=== PATIENT | male | born 1965 | race Caucasian/White ===

== ENCOUNTER 2021-06-27 11:13 | Emergency (ER) | payer MEDICAID, SELFPAY ==
[2021-06-27] VITALS (79 sets, daily range): BP systolic 118–165; BP diastolic 66–103; PULSE 49–86; RESP 10–32; TEMP 36.4–36.6; O2SAT 94–98
--- NOTE | 2021-06-27 11:15 | RT.EKG_ITS ---
APPROVED REPORT Exam: Resting ECG Reason for Exam: L chest/shoulder pain Patient Location: E HR:78 bpm ECG Measurements Heart Rate 78 AXIS SC 174 P 43 QRSd 152 QRS -52 QT 438 T 107 QTc 500 Conclusion Sinus rhythm...normal P axis, V-rate 60- 99 Left bundle branch block...QRSd>120, broad/notched R ST elevation secondary to IVCD...Multiple VCG criteria normal sinus rhythm, left axis, LBBB
--- NOTE | 2021-06-27 11:15 | DI.RAD_ITS ---
Exam(s) XR CHEST 2V PA LATERAL EXAM: XR CHEST 2V PA LATERAL CLINICAL HISTORY: L sided chest pain. TECHNIQUE: 2D digital imaging was performed. COMPARISON: No exams were available for comparison FINDINGS: Heart size is normal. The mediastinum is not widened. Lungs are clear. No infiltrates nor pleural effusions. IMPRESSION: No acute pulmonary findings. DATA REPOSITORY: RADIATION DOSE DELIVERED:
[2021-06-27 11:48] LABS: Abs Immature Grans 0.06 10^3/uL (0.0-0.06); Absolute Basophil Count 0.05 10^3/uL (0.0-0.2); Absolute Eosinophil Count 0.16 10^3/uL (0.0-0.7); Absolute Lymphocyte Count 3.02 10^3/uL (1.2-3.4); Absolute Monocyte Count 0.71 10^3/uL (0.1-0.8); Absolute Neutrophil Count 6.39 10^3/uL (1.2-6.7); Basophils % 0.5; Eosinophils % 1.5; HCT 46.1 % (40.0-50.0); HGB 15.3 g/dL (13.5-17.5); Immature Grans % 0.6; Lymphocytes % 29.1; MCH 30.7 pg (27.0-33.0); MCHC 33.2 % (32.0-36.0); MCV 92.6 fL (80-95); MPV 9.8 fL (8.0-11.0); Monocytes % 6.8; Neutrophils % 61.5; Nucleated RBC 0 %; Platelet Count 288 10^3/uL (130-400); RBC 4.98 10^6/uL (4.36-5.78); RDW 13.2 % (11.8-14.1); RDW-SD 44.8 fL; WBC 10.39 10^3/uL (4.4-10.8)
[2021-06-27 11:59] LABS: ALT 48 U/L (16-63); AST 29 U/L (15-37); Albumin 3.9 g/dL (3.4-5.0); Alkaline Phosphatase 91 U/L (46-116); Anion Gap 7.9 mmol/L (3-11); BUN 15 mg/dL (7-18); Bilirubin, Total 0.5 mg/dL (0.2-1.0); CO2 26.1 mmol/L (21.0-32.0); CREATININE 0.9 mg/dL (0.70-1.30); Calcium 8.8 mg/dL (8.5-10.1); Chloride 105 mmol/L (98-107); Glucose 103 mg/dL (74-106); Magnesium 1.8 mg/dL (1.8-2.4); Potassium 3.8 mmol/L (3.5-5.1); Sodium 139 mmol/L (136-145); Total Protein 7.4 g/dL (6.4-8.2)
[2021-06-27 12:06] LABS: Troponin I 120 ng/L (<or=60)
[2021-06-27] MEDS: Aspirin 325 MG TAB PO (12:30)
[2021-06-27 12:34] LABS: D-Dimer 306 ng/mlFEU (<500)
--- NOTE | 2021-06-27 12:37 | W.ED.GENAD ---
Discharge Plan Disposition Patient Disposition: STILL A PATIENT Condition: Serious Discharge Details Clinical Impression: Non-ST elevation UT (NSTEMI) Primary Care Provider: Unknown,Unknown ED Provider: Ami Bartlett Discharge Data Discharge Date/Time-TO BE ENTERED AT DEPARTURE: 06/27/21 18:05 Medical Decision Making <ABHINAV Ron - Last Filed: 06/28/21 08:06> This is a 55-year-old gentleman, denies significant past medical history but has not had any medical care in approximately 30 years. He does state that he is vaccinated x2 for Covid. He smokes a half a pack of cigarettes daily. He is presenting today complaining of left-sided chest pain that has been present more often than not over the past month, occasionally radiates to his shoulder and arm, sometimes down his entire arm to his hand. He states nothing really makes it worse or better and initially thought that he probably pulled a muscle. Given the symptoms have persisted, he is concerned that this is not a pulled muscle and there may be something more serious going on. Clinically he appears well, nontoxic, hemodynamically stable. Given his complaints, will obtain cardiac work-up including D-dimer and give a single dose of aspirin EKG reveals a left bundle branch block, unknown if this is acute as there are no previous to compare to. I was called with a critical troponin of 120. In the setting of left-sided chest pain, left bundle branch block of unknown duration, and an elevated troponin, patient likely with NSTEMI. EKG was transmitted to [facility] and I requested a cardiology transfer While awaiting the call back from cardiology CBC and CMP were unremarkable. Awaiting D-dimer I received a call from ABHINAV Kahn, cardiology at [facility]. She recommends initiating nitro, a low-dose beta-elsi, heparin bolus and drip, Plavix loading dose of 300, and atorvastatin. She agrees the patient needs to be transferred and Dr. Henson will be the accepting physician. Patient given the medications that were requested by cardiology. After a single sublingual nitro, patient is pain-free. All appropriate transfer paperwork was completed Patient reassessed again at 1400, remains asymptomatic and hemodynamically stable. Awaiting [facility] to call back with a bed assignment for transfer. 1525, patient remains asymptomatic and hemodynamically stable, awaiting transfer Medical Records Medical records reviewed: Yes I reviewed the patient's medical records. Imaging Data Radiologic Study: Attestation: I personally reviewed and interpreted this imaging study as follows: Imaging: X-Ray Radiologist's impression: Exam(s) XR CHEST 2V PA LATERAL EXAM: XR CHEST 2V PA LATERAL CLINICAL HISTORY: L sided chest pain. TECHNIQUE: 2D digital imaging was performed. COMPARISON: No exams were available for comparison FINDINGS: Heart size is normal. The mediastinum is not widened. Lungs are clear. No infiltrates nor pleural effusions. IMPRESSION: No acute pulmonary findings. Lab Data Lab results reviewed: Yes I reviewed the patient's lab results. Labs: Laboratory Tests Range/Units 06/27/21 06/27/21 06/27/21 11:36 11:36 11:36 WBC (4.4-10.8) 10^3/uL 10.39 RBC (4.36-5.78) 10^6/uL 4.98 Hgb (13.5-17.5) g/dL 15.3 Hct (40.0-50.0) % 46.1 MCV (80-95) fL 92.6 MCH (27.0-33.0) pg 30.7 MCHC (32.0-36.0) % 33.2 RDW (11.8-14.1) % 13.2 Plt Count (130-400) 10^3/uL 288 MPV (8.0-11.0) fL 9.8 Immature Gran % 0.6 Neutrophils % 61.5 Lymphocytes % 29.1 Monocytes % 6.8 Eosinophils % 1.5 Basophils % 0.5 Nucleated RBC % % 0 Absolute Neutrophils (1.2-6.7) 10^3/uL 6.39 Absolute Lymphocytes (1.2-3.4) 10^3/uL 3.02 Absolute Monocytes (0.1-0.8) 10^3/uL 0.71 Absolute Eosinophils (0.0-0.7) 10^3/uL 0.16 Absolute Basophils (0.0-0.2) 10^3/uL 0.05 PT (9.3-11.0) sec INR (0.9-1.1) APTT (21.0-27.5) sec D-Dimer (<500) ng/mlFEU 306 Sodium (136-145) mmol/L 139 Potassium (3.5-5.1) mmol/L 3.8 Chloride (98-107) mmol/L 105 Carbon Dioxide (21.0-32.0) mmol/L 26.1 Anion Gap (3-11) mmol/L 7.9 BUN (7-18) mg/dL 15 Creatinine (0.70-1.30) mg/dL 0.9 Estimated GFR/1.73 m2 (mL/min/1.73m2) >= 60.00 Glucose (74-106) mg/dL 103 Calcium (8.5-10.1) mg/dL 8.8 Magnesium (1.8-2.4) mg/dL 1.8 Total Bilirubin (0.2-1.0) mg/dL 0.5 AST (15-37) U/L 29 ALT (16-63) U/L 48 Alkaline Phosphatase (46-116) U/L 91 Troponin I (<or=60) ng/L 120 H* Total Protein (6.4-8.2) g/dL 7.4 Albumin (3.4-5.0) g/dL 3.9 COVID-19 Source Range/Units 06/27/21 06/27/21 12:45 12:58 WBC (4.4-10.8) 10^3/uL RBC (4.36-5.78) 10^6/uL Hgb (13.5-17.5) g/dL Hct (40.0-50.0) % MCV (80-95) fL MCH (27.0-33.0) pg MCHC (32.0-36.0) % RDW (11.8-14.1) % Plt Count (130-400) 10^3/uL MPV (8.0-11.0) fL Immature Gran % Neutrophils % Lymphocytes % Monocytes % Eosinophils % Basophils % Nucleated RBC % % Absolute Neutrophils (1.2-6.7) 10^3/uL Absolute Lymphocytes (1.2-3.4) 10^3/uL Absolute Monocytes (0.1-0.8) 10^3/uL Absolute Eosinophils (0.0-0.7) 10^3/uL Absolute Basophils (0.0-0.2) 10^3/uL PT (9.3-11.0) sec 9.9 INR (0.9-1.1) 1.0 APTT (21.0-27.5) sec 24.0 D-Dimer (<500) ng/mlFEU Sodium (136-145) mmol/L Potassium (3.5-5.1) mmol/L Chloride (98-107) mmol/L Carbon Dioxide (21.0-32.0) mmol/L Anion Gap (3-11) mmol/L BUN (7-18) mg/dL Creatinine (0.70-1.30) mg/dL Estimated GFR/1.73 m2 (mL/min/1.73m2) Glucose (74-106) mg/dL Calcium (8.5-10.1) mg/dL Magnesium (1.8-2.4) mg/dL Total Bilirubin (0.2-1.0) mg/dL AST (15-37) U/L ALT (16-63) U/L Alkaline Phosphatase (46-116) U/L Troponin I (<or=60) ng/L Total Protein (6.4-8.2) g/dL Albumin (3.4-5.0) g/dL COVID-19 Source Nasal/Nares ECG Data Attestation: I personally reviewed and interpreted this ECG (s) as follows: Interpretation: Please see official report by Dr. Rai. Sinus rhythm, ventricular rate of 78, left bundle branch block. No priors for comparison <ABHINAV Powell - Last Filed: 06/27/21 23:57> This is a 55-year-old gentleman, denies significant past medical history but has not had any medical care in approximately 30 years. He does state that he is vaccinated x2 for Covid. He smokes a half a pack of cigarettes daily. He is presenting today complaining of left-sided chest pain that has been present more often than not over the past month, occasionally radiates to his shoulder and arm, sometimes down his entire arm to his hand. He states nothing really makes it worse or better and initially thought that he probably pulled a muscle. Given the symptoms have persisted, he is concerned that this is not a pulled muscle and there may be something more serious going on. Clinically he appears well, nontoxic, hemodynamically stable. Given his complaints, will obtain cardiac work-up including D-dimer and give a single dose of aspirin EKG reveals a left bundle branch block, unknown if this is acute as there are no previous to compare to. I was called with a critical troponin of 120. In the setting of left-sided chest pain, left bundle branch block of unknown duration, and an elevated troponin, patient likely with NSTEMI. EKG was transmitted to [facility] and I requested a cardiology transfer While awaiting the call back from cardiology CBC and CMP were unremarkable. Awaiting D-dimer I received a call from ABHINAV Kahn cardiology at [facility]. She recommends initiating nitro, a low-dose beta-elsi, heparin bolus and drip, Plavix loading dose of 300, and atorvastatin. She agrees the patient needs to be transferred and Dr. Henson will be the accepting physician. Patient given the medications that were requested by cardiology. After a single sublingual nitro, patient is pain-free. All appropriate transfer paperwork was completed Patient reassessed again at 1400, remains asymptomatic and hemodynamically stable. Awaiting [facility] to call back with a bed assignment for transfer. 1525, patient remains asymptomatic and hemodynamically stable, awaiting transfer Current changes to myself from Albaro Heath PA-C. Please see his initial note regarding history, presentation and exam. In brief, patient is a 55-year-old gentleman presenting today with chief complaint of chest pain. Patient diagnosed with an NSTEMI and accepted at [facility], transfer pending. Patient remained hemodynamically stable, bed available at [facility] and patient transferred via EMS to their facility for further care of his cardiac condition. HPI <ABHINAV Ron - Last Filed: 06/28/21 08:06> General Mode of arrival: ambulatory. Date/Time Provider Initiated Documentation: 06/27/21 11:16. Limitations to Documentation: no limitations. Information obtained by: patient. History of Present Illness 55 year old M presents to the emergency department with the chief complaint of L sided chest pain, described as mild, with intensity rated at 3. Quality is described as aching, and is localized to the chest and left. Patient extremity (L upper). Patient started experiencing this month(s) (1) and it has been constant. improves with No relieving factors improve symptom(s), Movement worsens symptoms (at times) . Patient notes no other symptoms.. Patient did receive the following treatments prior to arrival, none Related Data Allergies Allergy/AdvReac Type Severity Reaction Status Date / Time No Known Allergies Allergy Unverified 06/27/21 11:30 General Stated Complaint: Chest Pain DORA: 2 Review of Systems <ABHINAV Ron - Last Filed: 06/28/21 08:06> Constitutional Constitutional: Denies fatigue, Denies fever(s), Denies headache(s) and Denies weakness ENT Ears, Nose, Mouth, and Throat: Denies headache(s) Cardiovascular Cardiovascular: Reports chest pain and Denies dyspnea Respiratory Respiratory: Denies cough and Denies dyspnea Gastrointestinal Gastrointestinal: Denies abdominal pain, Denies nausea and Denies vomiting Musculoskeletal Musculoskeletal: Denies back pain, Denies numbness and Denies tingling Integumentary/Breasts Skin/Breast: Denies rash Neurologic Neurologic: Denies headache(s), Denies numbness, Denies tingling and Denies weakness Endocrine Endocrine: Denies fatigue Hematologic/Lymphatic Hematologic/Lymphatic: Denies easy bleeding and Denies easy bruising PFSH <ABHINAV Ron - Last Filed: 06/28/21 08:06> All Active Problems (Updated 06/27/21 @ 14:04 by ABHINAV Ron) Non-ST elevation UT (NSTEMI) (Acute) Social History Smoking/Tobacco Use Status: Current every day Tobacco Type: cigarettes Smoking risk assessment performed?: Yes Alcohol Intake: never Drug use: Never Substance use type: does not use Do you feel safe at home: Yes Do you feel safe in your relationship?: Yes Exam <ABHINAV Ron - Last Filed: 06/28/21 08:06> Const General: cooperative, healthy appearing, comfortable and no acute distress Orientation: alert, awake and oriented x3 HENMT Head: normal to inspection, normocephalic and atraumatic Face and sinus: normal facial exam Mouth: moist mucous membranes Eyes General: appearance normal, both eyes and all related structures Conjunctivae: conjunctivae normal Neck Neck: normal visual inspection, trachea midline, supple and nontender Chest Chest: normal inspection of the chest and normal palpation of entire chest wall Resp Effort & Inspection: normal respiratory effort and able to speak in complete sentences Auscultation: clear to auscultation bilaterally Cardio Rate: regular rate Rhythm: regular rhythm GI Palpation: soft and nontender Back/Spine/Pelvis Back: No back tenderness Skin General skin exam: no rashes or lesions noted Neuro General: patient alert, patient awake, patient oriented x3, moves all extremities and no focal motor deficits Cognition: normal cognition Speech: speech normal Gait: normal gait Motor: muscle tone normal throughout Sensory Exam: no sensory deficits noted Extrem General: normal to inspection, full ROM, capillary refill normal, no pedal edema and no calf tenderness Psych Appearance: grossly normal Mental Status: mental status grossly normal Course <ABHINAV Ron - Last Filed: 06/28/21 08:06> Vital Signs Vital signs: Vital Signs Temperature 36.6 C 06/27/21 11:19 Pulse 81 06/27/21 11:19 Respiratory Rate 20 06/27/21 11:19 Blood Pressure 165/89 H 06/27/21 11:19 Pulse Oximetry 98 06/27/21 11:19 Temperature 36.6 C 06/27/21 11:19 Pulse 66 06/27/21 12:01 Pulse 75 06/27/21 12:01 Respiratory Rate 18 06/27/21 12:01 Respiratory Effort Non-Labored 06/27/21 11:22 Respiratory Depth Normal 06/27/21 11:22 Respiratory Pattern Normal 06/27/21 11:22 Blood Pressure 130/90 06/27/21 12:01 Blood Pressure Mean 100 06/27/21 12:01 Blood Pressure Position Sitting 06/27/21 11:19 Pulse Oximetry 96 06/27/21 12:01 Oxygen Delivery Method Room Air 06/27/21 11:19 Oxygen Flow Rate 0 06/27/21 11:19 Pain Level 0 06/27/21 11:22 Lab/Test Results Lab/Test Results: Laboratory Tests Range/Units 06/27/21 06/27/21 06/27/21 11:36 11:36 11:36 WBC (4.4-10.8) 10^3/uL 10.39 RBC (4.36-5.78) 10^6/uL 4.98 Hgb (13.5-17.5) g/dL 15.3 Hct (40.0-50.0) % 46.1 MCV (80-95) fL 92.6 MCH (27.0-33.0) pg 30.7 MCHC (32.0-36.0) % 33.2 RDW (11.8-14.1) % 13.2 Plt Count (130-400) 10^3/uL 288 MPV (8.0-11.0) fL 9.8 Immature Gran % 0.6 Neutrophils % 61.5 Lymphocytes % 29.1 Monocytes % 6.8 Eosinophils % 1.5 Basophils % 0.5 Nucleated RBC % % 0 Absolute Neutrophils (1.2-6.7) 10^3/uL 6.39 Absolute Lymphocytes (1.2-3.4) 10^3/uL 3.02 Absolute Monocytes (0.1-0.8) 10^3/uL 0.71 Absolute Eosinophils (0.0-0.7) 10^3/uL 0.16 Absolute Basophils (0.0-0.2) 10^3/uL 0.05 D-Dimer (<500) ng/mlFEU 306 Sodium (136-145) mmol/L 139 Potassium (3.5-5.1) mmol/L 3.8 Chloride (98-107) mmol/L 105 Carbon Dioxide (21.0-32.0) mmol/L 26.1 Anion Gap (3-11) mmol/L 7.9 BUN (7-18) mg/dL 15 Creatinine (0.70-1.30) mg/dL 0.9 Estimated GFR/1.73 m2 (mL/min/1.73m2) >= 60.00 Glucose (74-106) mg/dL 103 Calcium (8.5-10.1) mg/dL 8.8 Magnesium (1.8-2.4) mg/dL 1.8 Total Bilirubin (0.2-1.0) mg/dL 0.5 AST (15-37) U/L 29 ALT (16-63) U/L 48 Alkaline Phosphatase (46-116) U/L 91 Troponin I (<or=60) ng/L 120 H* Total Protein (6.4-8.2) g/dL 7.4 Albumin (3.4-5.0) g/dL 3.9 Critical Care Time <ABHINAV Ron - Last Filed: 06/28/21 08:06> Critical Care Time Critical Care Time: Yes Total Critical Care Time: 35 Attestation: Upon my evaluation, this patient had a high probability of clinically significant, life-threatening deterioration due to their current medical conditions, which required my direct attention, intervention, and personal management. I have personally provided greater than 30 minutes of critical care time exclusive of the time spend on separately billable procedures. Time includes obtaining a history, examining the patient, pulse oximetry, review of laboratory data, radiology results, discussion with consultants, arranging urgent treatment with development of a management plan, evaluation of patient's response to treatment, and monitoring for potential decompensation. Interventions were performed as documented above. Sign Out <ABHINAV Ron - Last Filed: 06/28/21 08:06> Sign Out Data: Sign Out Comment: NSTEMI, awaiting [facility] to jay hospital bed assignment Last updated by Santo Heath PA at 06/27/21 15:25
[2021-06-27] MEDS: Clopidogrel 300 MG TAB PO (12:47)
[2021-06-27] MEDS: Metoprolol 12.5 MG TAB PO (12:56)
[2021-06-27] MEDS: Atorvastatin 40 MG TAB 80 MG PO (12:57)
[2021-06-27 13:06] LABS: Prothrombin Time 9.9 sec (9.3-11.0)
[2021-06-27 13:12] LABS: Source Nasal/Nares
[2021-06-27 14:18] LABS: COVID-19 PCR Negative (Negative)
== END 2021-06-27 18:05 | disposition still patient (30) ==
PROVIDERS: Physician Assistant; Emergency Provider Physician Assistant
DX: I21.4 Non-ST elevation (NSTEMI) myocardial infarction (principal); F17.210 Nicotine dependence, cigarettes, uncomplicated; I44.7 Left bundle-branch block, unspecified
CPT/HCPCS: 36415; 80053; 87635; 93005; 96365; 96376; 99291; 71046; 83735; 84484; 85025; 85379; 85610; 85730; 93010; J3490

== ENCOUNTER 2021-07-08 03:43 | Outpatient (CLI) | payer MEDICAID, SELFPAY ==
[2021-07-08 08:16] LABS: Hemoglobin A1C 5.5 % (<5.7)
[2021-07-08 09:22] LABS: ALT 61 U/L (16-63); AST 25 U/L (15-37); Albumin 4.2 g/dL (3.4-5.0); Alkaline Phosphatase 99 U/L (46-116); Anion Gap 9.1 mmol/L (3-11); BUN 15 mg/dL (7-18); Bilirubin, Total 0.7 mg/dL (0.2-1.0); CO2 26.9 mmol/L (21.0-32.0); Calcium 9.2 mg/dL (8.5-10.1); Calculated LDL 63 mg/dL (<100); Chloride 103 mmol/L (98-107); Cholesterol 119 mg/dL (<200); Glucose 98 mg/dL (74-106); HDL Cholesterol 49 mg/dL (40-60); Potassium 4.6 mmol/L (3.5-5.1); Sodium 139 mmol/L (136-145); TSH 1.09 uIU/mL (0.36-3.74); Total Protein 7.3 g/dL (6.4-8.2); Triglyceride 39 mg/dL (<150)
[2021-07-08 18:43] LABS: PSA, Screening 1.5 ng/mL (0.0-3.5)
== END 2021-07-08 03:44 | disposition home or self-care (01) ==
LOC: LBO 03:43
PROVIDERS: PCP Nurse Practitioner Family; Visit Provider Nurse Practitioner Family
DX: Z12.5 Encounter for screening for malignant neoplasm of prostate (principal); I10 Essential (primary) hypertension; Z13.220 Encounter for screening for lipoid disorders; Z13.1 Encounter for screening for diabetes mellitus; Z13.29 Encounter for screening for other suspected endocrine disorder
CPT/HCPCS: 36415; 80053; 80061; 84153; 83036; 84443

== ENCOUNTER 2021-08-03 08:00 | Outpatient (RCR) | payer MEDICAID, SELFPAY | END 2021-08-04 23:59 | disposition home or self-care (01) | LOC: CR 08:00 | PROVIDERS: PCP Nurse Practitioner Family; Visit Provider Family Medicine | DX: Z51.89 Encounter for other specified aftercare (principal); I25.2 Old myocardial infarction; I42.9 Cardiomyopathy, unspecified | CPT/HCPCS: S9472 ==

== ENCOUNTER 2021-08-12 00:19 | Outpatient (CLI) | payer MEDICAID, SELFPAY ==
--- NOTE | 2021-08-12 07:38 | DI.US_ITS ---
APPROVED REPORT EXAM: Comprehensive 2D, Doppler, and color-flow Echocardiogram Patient Location: Out-Patient Manager Product Design: Zaria Cox RDCS (AE) Indications: Cardiomyopathy Other Information Study Quality: Adequate Conclusion Normal left ventricular wall thickness and chamber size. Estimated ejection fraction is 40 to 45%. Septal motion is consistent with known IVCD (LBBB). The remainder of the ventricle is mildly hypocon tractile Normal right ventricular size and systolic function Both atria are normal in size There is no structural or hemodynamically significant valvular disease Borderline dilated ascending aorta measuring 3.53 cm Wall motion Left Ventricle The left ventricle is normal size. Left ventricular systolic function is mildly decreased. There is n ormal left ventricular wall thickness. Septal motion consistent with IVCD Remainder mildly hypocontra ctile There is no ventricular septal defect visualized. LVEF is 40-45%. Right Ventricle The right ventricle is normal size. The right ventricular systolic function is normal. Atria The left atrium size is normal. The right atrium size is normal. The interatrial septum is intact wit h no evidence for an atrial septal defect. Aortic Valve The aortic valve is normal in structure. There is no aortic valvular stenosis. No aortic regurgitatio n is present. Mitral Valve The mitral valve is normal in structure. No evidence of mitral valve stenosis. Trace mitral regurgita tion. Tricuspid Valve The tricuspid valve is normal in structure. There is no tricuspid valve stenosis. Trace tricuspid reg urgitation. Unable to assess PA pressure. Pulmonic Valve The pulmonary valve is normal in structure. There is no pulmonic valvular stenosis. Trace to mild pul tunde regurgitation. Great Vessels The aortic root is normal in size. The ascending aorta is mildly dilated. Aortic arch is normal in ca liber. IVC is normal in size and collapses >50% with inspiration. Pericardium There is no pericardial effusion. 2D Dimensions IVSD d PLAX 1.05 cm M: 0.6-1.2 LV Vol A2C d MOD 119.0 mL LVPW d PLAX 1.00 cm M: 0.6 - 1.2 LV Vol A4C d MOD 110.4 mL LVID d PLAX 5.47 cm M: 4.2 - 5.8 LA vol/ BSA A2C s A-L 24.5 mL/m2 LVDs 4.40 cm M: 2.5 - 4.0 LA vol/ BSA A4C s A-L 18.3 mL/m2 Ao Root d 3.29 cm M: 3.1 - 3.7 LA Vol/ BSA Biplane s A-L 21.2 mL/m2 RA Area A4C 13.73 cm2 LA Area A4C s MOD 14.97 cm2 RA Vol/ BSA A4C s A-L 17.9 mL/m2 LA Area A2C s MOD 17.30 cm2 Ao Asc Diam d 3.53 cm M: 2.6 - 3.4 LV EF A4C MOD 35.4 % LV EF Teichholz 38.6 % LV EF A2C MOD 40.8 % LVEF (Espitia's) 38.20 % M: 52 - 72 LV EF Biplane MOD 38.2 % LV Volume 88.05 mL M: 62 - 150 SV 44.67 mL LV Volume Index 44.69 mL/m2 M: 34 - 74 SV Index 22.61 mL/m2 LV Vol Biplane MOD 116.9 mL FS 18.90 % M-Mode TAPSE 2.73 cm (M/F) >1.7 LV Diastology MV E' medial 0.061 (>0.07 m/s) E/A Ratio 0.6 LV E/e MED 8.30 (<14) MV E Vmax 0.51 (0.4-1.3 m/s) MV E' lateral 0.056 (>0.1 m/s) MV A Vmax 0.90 (0.4-1.3 m/s) LV E/e LAT 9.00 (<14) MV E/A Ratio 0.56 MV E/E' medial 8.30 MV E/E' lateral 9.02 Aortic Valve LVOT Area 3.74 cm2 AoV Area Vmax 3.62 cm2 LVOT Vmax 1.44 m/s AoV Area/ BSA (Vmax) 1.83 cm2/m2 LVOT Mean Alfonzo. 1.05 m/s NABEEL Mean Alfonzo. 3.72 cm2 LVOT Peak Grad 8.3 mmHg NABEEL Mean Alfonzo. Index 1.88 cm2/m2 LVOT Mean Grad 4.8 mmHg LVOT VTI 0.291 m LVOT Diam s 2.15 cm AoV Vmax 1.49 m/s Velocity Ratio 0.96 AoV Mean Alfonzo. 1.05 m/s AoV Peak Grad 8.8 mmHg LVOT SV 108.93 mL AoV Mean Grad 4.9 mmHg AoV VTI 0.261 m AoV Area VTI 4.18 cm2 AoV Area/ BSA (VTI) 2.12 cm/m2 Mitral Valve MV DT 556 (160-240 msec) MV PHT 161 msec MV Area PHT 1.36 cm2 Pulmonary Valve PV Vmax 0.93 (0.5-1.5 m/s) RVOT Peak Gr. 1.74 mmHg PV Peak Grad 3.5 mmHg RVOT Mean Gr. 0.75 mmHg PV Mean Grad 1.7 mmHg RVOT VTI 0.126 m PV VTI 0.196 m RVOT Vmax 0.66 m/s
== END 2021-08-12 00:39 ==
PROVIDERS: PCP Nurse Practitioner Family; Visit Provider Internal Medicine Cardiovascular Disease
DX: I42.8 Other cardiomyopathies (principal); I77.89 Other specified disorders of arteries and arterioles
CPT/HCPCS: 93306

== ENCOUNTER 2021-08-18 11:17 | Outpatient (CLI) | payer MEDICAID, SELFPAY ==
--- NOTE | 2021-08-18 11:15 | RT.EKG_ITS ---
APPROVED REPORT Exam: Resting ECG Reason for Exam: [facility] Patient Location: O HR:81 bpm ECG Measurements Heart Rate 81 AXIS HI [id number] P [id number] QRSd 155 QRS -43 QT 433 T 115 QTc 503 Conclusion Sinus rhythm Left bundle branch block...QRSd>120, broad/notched R Baseline wander in lead(s) V1
== END 2021-08-18 11:18 | disposition home or self-care (01) ==
LOC: DI.CARD 11:17
PROVIDERS: PCP Nurse Practitioner Family; Visit Provider Internal Medicine Cardiovascular Disease
DX: I44.7 Left bundle-branch block, unspecified; I10 Essential (primary) hypertension; I42.9 Cardiomyopathy, unspecified; R07.9 Chest pain, unspecified
CPT/HCPCS: 93010

== ENCOUNTER 2021-09-02 08:00 | Outpatient (RCR) | payer MEDICAID, SELFPAY | END 2021-09-03 23:59 | disposition home or self-care (01) | LOC: CR 08:00 | PROVIDERS: PCP Nurse Practitioner Family; Visit Provider Internal Medicine Cardiovascular Disease | DX: Z51.89 Encounter for other specified aftercare (principal); I25.2 Old myocardial infarction; I42.9 Cardiomyopathy, unspecified | CPT/HCPCS: S9472 ==

== ENCOUNTER 2021-09-30 08:00 | Outpatient (RCR) | payer MEDICAID, SELFPAY | END 2021-10-04 23:59 | disposition home or self-care (01) | LOC: CR 08:00 | PROVIDERS: PCP Nurse Practitioner Family; Visit Provider Internal Medicine Cardiovascular Disease | DX: Z51.89 Encounter for other specified aftercare (principal); I25.2 Old myocardial infarction; I42.9 Cardiomyopathy, unspecified | CPT/HCPCS: S9472 ==

== ENCOUNTER 2021-10-21 08:00 | Outpatient (RCR) | payer MEDICAID, SELFPAY | END 2021-11-03 23:59 | disposition home or self-care (01) | LOC: CR 08:00 | PROVIDERS: PCP Nurse Practitioner Family; Visit Provider Internal Medicine Cardiovascular Disease | DX: Z51.89 Encounter for other specified aftercare (principal); I25.2 Old myocardial infarction; I42.9 Cardiomyopathy, unspecified | CPT/HCPCS: S9472 ==

== ENCOUNTER 2021-11-15 19:44 | Outpatient (CLI) | payer MEDICAID, SELFPAY ==
--- NOTE | 2021-12-19 12:37 | W.CARDEVENT ---
Date of service: 12/19/21 Time of Service: 12:37 Cardiac Event Recorder Referring Provider:: Kingston Bubsy Indications:: Palpitations and cardiomyopathy Cardiac Event Note: This is a 30-day cardiac event monitor. Predominant rhythm was sinus with an average heart rate of 69. Minimum was 52 maximum 161 There were rare ventricular ectopic beats. There was one 4 beat run of nonsustained ventricular tachycardia There was no atrial fibrillation, no high-grade AV block, no pauses greater than 3 seconds Sinus bradycardia was noted during sleep, minimum heart rates 40-44 Symptoms of flutter corresponded to sinus tachycardia
== END 2021-11-15 19:45 | disposition home or self-care (01) ==
LOC: RT 19:49
PROVIDERS: PCP Nurse Practitioner Family; Visit Provider Internal Medicine Cardiovascular Disease
DX: R00.2 Palpitations
CPT/HCPCS: 93270

== ENCOUNTER → 2022-01-31 01:30 | Outpatient (CLI) | payer MEDICAID, SELFPAY ==
--- NOTE | 2022-01-31 07:00 | DI.US_ITS ---
APPROVED REPORT EXAM: Comprehensive 2D, Doppler, and color-flow Echocardiogram Patient Location: Out-Patient Pediatric Physiatrist: Zaria Cox RDCS (AE) Indications: LV function, Cardiomyopathy Other Information Study Quality: Adequate Conclusion Normal left ventricular wall thickness and chamber size. Estimated ejection fraction is 45 to 50%. Septal motion is paradoxic Normal right ventricular size and systolic function Both atria are normal in size Trileaflet aortic valve with trace regurgitation Normal mitral valve with trace regurgitation Normal tricuspid valve with trace to mild regurgitation. Estimated right ventricular systolic pressu re is 23 mmHg Mildly dilated ascending aorta measuring 3.52 cm Wall motion Left Ventricle The left ventricle is normal size. Left ventricular systolic function is mildly decreased. There is n ormal left ventricular wall thickness. Septal motion is paradoxic There is no ventricular septal defe ct visualized. LVEF is 45-50% Right Ventricle The right ventricle is normal size. Right ventricle is not well visualized. Right ventricle is grossl y normal in size. The right ventricular systolic function is normal. The RVSP is 23.2 mmHg. Atria The left atrium size is normal. The right atrium size is normal. The interatrial septum is intact wit h no evidence for an atrial septal defect. Aortic Valve The aortic valve is normal in structure. Aortic valve is trileaflet. There is no aortic valvular sten osis. Trace aortic regurgitation. Mitral Valve The mitral valve is normal in structure. No evidence of mitral valve stenosis. Trace mitral regurgita tion. Tricuspid Valve The tricuspid valve is normal in structure. There is no tricuspid valve stenosis. Trace to mild tricu spid regurgitation. Pulmonic Valve The pulmonary valve is normal in structure. There is no pulmonic valvular stenosis. Trace to mild pul tunde regurgitation. Great Vessels The aortic root is normal in size. The ascending aorta is mildly dilated. Aortic arch is normal in ca liber. IVC is normal in size and collapses >50% with inspiration. Pericardium There is no pericardial effusion. 2D Dimensions IVSD d PLAX 1.06 cm M: 0.6-1.2 LV Vol A2C d MOD 153.7 mL LVPW d PLAX 1.03 cm M: 0.6 - 1.2 LV Vol A4C d MOD 158.7 mL LVID d PLAX 5.11 cm M: 4.2 - 5.8 LA vol/ BSA A2C s A-L 40.1 mL/m2 LVDs 4.00 cm M: 2.5 - 4.0 LA vol/ BSA A4C s A-L 17.5 mL/m2 Ao Root d 3.33 cm M: 3.1 - 3.7 LA Vol/ BSA Biplane s A-L 30.0 mL/m2 RA Area A4C 15.62 cm2 LA Area A4C s MOD 13.23 cm2 RA Vol/ BSA A4C s A-L 22.3 mL/m2 LA Area A2C s MOD 22.75 cm2 Ao Asc Diam d 3.52 cm M: 2.6 - 3.4 LV EF A4C MOD 44.9 % LV EF Teichholz 42.3 % LV EF A2C MOD 41.2 % LVEF (Espitia's) 41.55 % M: 52 - 72 LV EF Biplane MOD 41.5 % LV Volume 120.54 mL M: 62 - 150 SV 66.47 mL LV Volume Index 61.18 mL/m2 M: 34 - 74 SV Index 33.70 mL/m2 LV Vol Biplane MOD 160.0 mL FS 20.85 % M-Mode TAPSE 1.94 cm (M/F) >1.7 LV Diastology MV E' medial 0.051 (>0.07 m/s) E/A Ratio 0.6 LV E/e MED 9.50 (<14) MV E Vmax 0.48 (0.4-1.3 m/s) MV E' lateral 0.068 (>0.1 m/s) MV A Vmax 0.80 (0.4-1.3 m/s) LV E/e LAT 7.10 (<14) MV E/A Ratio 0.60 MV E/E' medial 9.55 MV E/E' lateral 7.13 Aortic Valve LVOT Area 3.59 cm2 AoV Area Vmax 3.15 cm2 LVOT Vmax 1.15 m/s AoV Area/ BSA (Vmax) 1.60 cm2/m2 LVOT Mean Alfonzo. 0.78 m/s NABEEL Mean Alfonzo. 3.01 cm2 LVOT Peak Grad 5.3 mmHg NABEEL Mean Alfonzo. Index 1.53 cm2/m2 LVOT Mean Grad 2.8 mmHg AR DT 2751 msec LVOT VTI 0.204 m AR PHT 798 msec LVOT Diam s 2.10 cm AoV Vmax 1.31 m/s Velocity Ratio 0.87 AoV Mean Alfonzo. 0.93 m/s AoV Peak Grad 6.9 mmHg LVOT SV 73.25 mL AoV Mean Grad 3.8 mmHg AoV VTI 0.226 m AoV Area VTI 3.25 cm2 AoV Area/ BSA (VTI) 1.65 cm/m2 Mitral Valve MV DT 303 (160-240 msec) MV PHT 88 msec MV Area PHT 2.51 cm2 MV VTI 0.239 m MV Area VTI 3.06 (4.0-6.0 cm2) Pulmonary Valve PV Vmax 0.88 (0.5-1.5 m/s) RVOT Peak Gr. 1.77 mmHg PV Peak Grad 3.1 mmHg RVOT Mean Gr. 0.80 mmHg PV Mean Grad 1.4 mmHg RVOT VTI 0.103 m PV VTI 0.162 m RVOT Vmax 0.67 m/s Tricuspid Valve TR Peak Grad 20.2 mmHg TR Vmax 2.25 m/s RA Pressure 3.00 mmHg RVSP (TR) 23.2 mmHg
== END ==
PROVIDERS: PCP Nurse Practitioner Family; Visit Provider Internal Medicine Cardiovascular Disease
DX: I42.8 Other cardiomyopathies (principal)
CPT/HCPCS: 93306

== ENCOUNTER 2022-09-26 03:42 | Outpatient (CLI) | payer MEDICAID, SELFPAY ==
[2022-09-26 10:41] LABS: ALT 43 U/L (16-63); AST 31 U/L (15-37); Albumin 3.9 g/dL (3.4-5.0); Alkaline Phosphatase 98 U/L (46-116); Anion Gap 6.8 mmol/L (3-11); BUN 9 mg/dL (7-18); Bilirubin, Total 0.9 mg/dL (0.2-1.0); CO2 27.2 mmol/L (21.0-32.0); CREATININE 0.9 mg/dL (0.70-1.30); Calculated LDL 49 mg/dL (<100); Chloride 104 mmol/L (98-107); Cholesterol 119 mg/dL (<200); Estimated GFR 100.24 (mL/min/1.73m2); Glucose 115 mg/dL (74-106); HDL Cholesterol 57 mg/dL (40-60); Potassium 3.8 mmol/L (3.5-5.1); Sodium 138 mmol/L (136-145); Total Protein 7.4 g/dL (6.4-8.2); Triglyceride 65 mg/dL (<150)
== END 2022-09-26 03:43 | disposition home or self-care (01) ==
LOC: LBO 03:42
PROVIDERS: PCP Nurse Practitioner Family; Visit Provider Nurse Practitioner Family
DX: I42.9 Cardiomyopathy, unspecified (principal)
CPT/HCPCS: 36415; 80053; 80061

== ENCOUNTER → 2023-04-13 00:20 | Outpatient (CLI) | payer MEDICAID, SELFPAY ==
--- NOTE | 2023-04-13 06:30 | DI.US_ITS ---
APPROVED REPORT EXAM: Comprehensive 2D, Doppler, and color-flow Echocardiogram Patient Location: Out-Patient [place] Operator: Zaria Cox RDCS (AE) Indications: Check LV function, Cardiomyopathy Other Information Study Quality: Good Conclusion Normal left ventricular wall thickness and chamber size. Ejection fraction is 45 to 50%. There is p aradoxic septal motion. There is stage I diastolic dysfunction Normal right ventricular size and systolic function Both atria are normal in size. The atrial septum is thin and hypermobile Trileaflet aortic valve with trace regurgitation Mildly dilated ascending aorta 3.5 cm Ejection fraction appears similar to 2021 Wall motion Left Ventricle The left ventricle is normal size. Left ventricular systolic function is mildly decreased. There is n ormal left ventricular wall thickness. Paradoxical septal motion Transmitral Doppler flow pattern sug gests impaired LV relaxation. There is no ventricular septal defect visualized. LVEF is 48%. Right Ventricle The right ventricle is normal size. The right ventricular systolic function is normal. Atria The left atrium size is normal. The right atrium size is normal. Atrial septal aneurysm is present. Aortic Valve The aortic valve is normal in structure. Aortic valve is trileaflet. There is no aortic valvular sten osis. Trace aortic regurgitation. Mitral Valve The mitral valve is normal in structure. No evidence of mitral valve stenosis. Trace mitral regurgita tion. Tricuspid Valve The tricuspid valve is normal in structure. There is no tricuspid valve stenosis. Trace tricuspid reg urgitation. Unable to assess PA pressure. Pulmonic Valve The pulmonary valve is normal in structure. There is no pulmonic valvular stenosis. There is no pulmo neto valvular regurgitation. Great Vessels The aortic root is normal in size. The ascending aorta is mildly dilated. Aortic arch is normal in c aliber. IVC is normal in size and collapses >50% with inspiration. Pericardium There is no pericardial effusion. 2D Dimensions IVSD d PLAX 1.02 cm M: 0.6-1.2 Ao Root d 3.55 cm M: 3.1 - 3.7 LVPW d PLAX 0.98 cm M: 0.6 - 1.2 Ao Asc Diam d 3.50 cm M: 2.6 - 3.4 LVID d PLAX 5.47 cm M: 4.2 - 5.8 LVDs 4.28 cm M: 2.5 - 4.0 LV EF Teichholz 43.8 % FS 21.88 % LV EDV (Teich) 145.8 mL LV ESV (Teich) 82.0 mL M-Mode TAPSE 2.02 cm (M/F) >1.7 Auto EF LV EDV A4C 134.8 mL LV EDV A2C 163.1 mL LV EDV BP 152.1 mL LV ESV A4C 75.4 mL LV ESV A2C 84.1 mL LV ESV BP 80.4 mL LVEF(%) A4C 44.0 % LVEF(%) A2C 48.4 % LVEF(%) BP 47.2 % LV SV A4C 59.4 ml LV SV A2C 78.9 ml LV SV BP 71.8 ml LV CO A4C 3.2 L/min LV CO A2C 4.6 L/min LV CO BP 3.9 L/min HR A4C 53.81 BPM HR A2C 58.63 BPM LV EDV Index (BP) LV Strain Long Pk Overal Avg (s) 14.44 LA Volume LA Length A4C 4.5 cm LA Length A2C 5.7 cm LA Area A4C s 16.26 cm2 LA Area A2C s 20.21 cm2 LA Vol A4C A-L 49.99 mL LA Vol A2C A-L 61.12 mL LA Vol Biplane A-L 62.1 mL LA Vol/BSA A4C A-L LA Vol/BSA A2C A-L LA Vol/BSA BP A-L 30.8 mL/m2 LA Vol A4C MOD 46.1 mL LA Vol A2C MOD 58.5 mL LA Vol BP MOD 58.3 mL RA Volume RA Area A4C 11.5 cm2 RA ESV A4C (A-L) 30.4mL RA Vol/BSA A4C A-L RA Length A4C 3.7 cm RA ESV A4C (MOD) 28.7mL LV Diastology MV E' medial 0.055 (>0.07 m/s) MV E Vmax 0.53 (0.4-1.3 m/s) MV E/E' MED 9.52 (<14) MV A Vmax 0.85 (0.4-1.3 m/s) MV E' lateral 0.074 (>0.1 m/s) E/A Ratio 0.6 MV E/E' LAT 7.11 (<14) MV E' Average 0.065 m/s MV E/E'(average) 8.14 Aortic Valve AoV Vmax 1.55 m/s LVOT Vmax 1.19 m/s AoV Peak Grad 9.6 mmHg LVOT Peak Grad 5.7 mmHg AoV Area (Vmax) 2.47 cm2 LVOT VTI 0.305 m AoV VTI 0.343 m LVOT Mean Grad 2.6 mmHg AoV Mean Alfonzo. 1.07 m/s LVOT SV 97.73 mL AoV Mean Grad 5.3 mmHg LVOT Diam s 2.00 cm AoV Area (VTI) 2.85 cm2 Velocity Ratio 0.77 Mitral Valve MV DT 183 (160-240 msec) MV Vmax TIPS 0.99 m/s MV Mean Grad 1.3 (<2mmHg) MV VTI 0.281 m Pulmonary Valve PV Vmax 0.97 (0.5-1.5 m/s) RVOT Vmax 0.62 m/s PV Peak Grad 3.7 mmHg RVOT Peak Gr. 1.5 mmHg PV Mean Alfonzo 0.61 m/s RVOT VTI 0.148 m PV Mean Grad 1.8 mmHg RVOT Mean Gr. 0.6 mmHg Tricuspid Valve RA Pressure 3.00 mmHg TV S' 0.11 m/s
== END ==
PROVIDERS: PCP Nurse Practitioner Family; Visit Provider Internal Medicine Cardiovascular Disease
DX: I42.9 Cardiomyopathy, unspecified (principal)
CPT/HCPCS: 93306

== ENCOUNTER 2023-05-28 09:07 | Day surgery (SDC) | payer MEDICAID, SELFPAY ==
--- NOTE | 2023-05-27 14:56 | W.PM.DSUDISC ---
Date of service: 05/28/23 Time of Service: 11:43 Discharge Plan Disposition Patient Disposition: Home Condition: Good Discharge Details Reason For Visit: screening colonoscopy Attending Provider: Isiah Wynn Primary Care Provider: Matt Kirby Home Meds and New Rx's Prescriptions: Continued aspirin 81 mg capsule 81 mg PO DAILY losartan 50 mg tablet 50 mg PO DAILY Qty: 90 3RF Jardiance 10 mg tablet 10 mg PO DAILY Qty: 90 3RF atorvastatin 80 mg tablet 80 mg PO DAILY Qty: 90 3RF metoprolol succinate 25 mg tablet extended release 24 hr 12.5 mg PO DAILY Qty: 90 3RF spironolactone 25 mg tablet 12.5 mg PO DAILY Qty: 90 3RF Discontinued polyethylene glycol 3350 17 gram/dose powder 238 g PO ONCE Qty: 238 0RF Rx Instructions: take per colonoscopy instructions bisacodyl [Dulcolax (bisacodyl)] 5 mg tablet,delayed release (DR/EC) 5 mg PO ONCE Qty: 4 0RF Rx Instructions: take per colonoscopy instructions Discharge Instructions Instructions: Colorectal Polyps (GEN) Additional Instructions: Isiah, we are able to complete your colonoscopy today without any issues. The quality of your prep was excellent, and I could see everything just fine. I did find 1 very small area that I suspect may be a polyp. It is a little hard to say because of the size of it. Regardless, I removed it and I will send it off for the pathologist to analyze. Once I have the report on the nature of that, I will be in touch with recommendations for your next colonoscopy. Incidentally, he also have very small internal hemorrhoids. I do not think that you need any treatment for these. I would encourage you to avoid straining, and make sure that you have plenty of fiber in your diet to minimize symptoms of constipation. If you have any questions at all, please do not hesitate to call, otherwise I will let you know when I have the pathology report on the polyp. 1. If tolerated, consume a soft, low fiber diet for 1-2 days. 2[address] Do not drive, drink alcohol, operate machinery, make critical decisions, or do activities that require coordination or balance for 24 hours. 3. Because air was put into your colon during the procedure, expelling air from your rectum (passing gas or farting) is normal. 4. You may not have a bowel movement for 1-3 days because of the colonoscopy prep. This is normal. 5. Go directly to the emergency room if you notice any of the following: Develop chills (warm to touch), or if you have a thermometer and your temperature is above 101 Difficulty breathing or difficultly swallowing Persistent vomiting Severe abdominal pain, other than gas cramps Severe chest pain Black, tarry stools Any bleeding ? exceeding one tablespoon 6. Call your physician if the site where your intravenous was started becomes red, swollen, painful, and warm to touch. 7. Your physician has reviewed your pre-procedure medications. Please continue to take those medications as previously ordered. You will be given specific information/education regarding any changes to your medications before leaving. Activity:: Activity as Tolerated Diet:: As Tolerated Discharge Orders Discharge Orders: Discharge Order (Routine); Ordered 05/27/23 Ordered By: Isiah Wynn DS: Diagnosis Discharge Diagnosis (1) Screen for colon cancer: Status: Acute Asessment and Plan: Follow-up on polyp results
--- NOTE | 2023-05-27 14:58 | W.COLOREPORT ---
Date of service: 05/28/23 Time of Service: 11:45 Colonoscopy Report Date of procedure: 05/28/23 Pre-op diagnosis general: screening colonoscopy Post-op diagnosis procedure note: other (Internal hemorrhoid, polyp at 45 cm) Procedure: Colonoscopy with polypectomy Surgeon: Isiah Wynn Anesthesia Type: General:No Airway Estimated blood loss (mL): 5 Pathology: other (0.25 cm polyp at 45 cm from the anus) Complications: None Disposition: same day Indications: Isiah is 57 years old. He needs a screening colonoscopy Prep: Miralax/Dulcolax Procedure Start Time: 11:20 Procedure End Time: 11:33 Retraction Time: 8 Findings: 0.25 cm flat polyp at 45 cm from the anus; internal hemorrhoid Procedure Description: After the induction of monitored anesthetic care, and with the patient in left lateral decubitus position, I began by performing an external anorectal exam.? Perineum and skin were normal, as was the anal verge.? There was no evidence of external hemorrhoids.? Next, I performed a digital rectal exam.? I did not appreciate any abnormal findings.? Next, I advanced a colonoscope into the rectal vault.? I performed retroflexion.? There is grade 1 internal hemorrhoids.? Using insufflation, I then advanced the colonoscope beyond the rectal folds and into the sigmoid colon before advancing towards the cecum.?The scope was noted to be in the cecum by identification of the ileocecal valve and appendiceal orifice.? I then began withdrawing the colonoscope using repeated irrigation as necessary for full evaluation of the colonic mucosa. Around 45 cm from the anal verge was a flat slightly erythematous area along one of the colonic haustra. It had some features consistent with a polyp. Narrowband imaging was used to assist with analysis. I suspect this might be an inflammatory polyp, but given the sessile nature of it, I felt polypectomy was the safest option here. Therefore, I used cold forceps to remove the area. There is minimal bleeding. I continued evaluating the rest of the colon. Once the scope was withdrawn to the level of the rectum, great care was taken to examine portions of the rectal folds.? Finally, the scope was withdrawn and the patient was brought to the same-day surgery recovery unit as the anesthetic wore off. ?The findings and instructions were shared with the patient prior to discharge. [place] Bowel Prep [place] Bowel Prep Right Colon: 3 Left Colon: 3 Transverse Colon: 3 Total Score: 9
[2023-05-28 09:35] VITALS: BP 114/80; PULSE 68; RESP 16; TEMP 36.6; O2SAT 99
--- NOTE | 2023-05-28 09:56 | ANES.PREOP_ITS ---
General Info Date of Service Date Performed: 05/28/23 Height: 5 ft 9 in Weight: 75.2 kg Body Mass Index (BMI): 24.5 Surgical Procedure: Operation Date: 05/28/23 11:20 Proposed Procedure Side Surgeon renu Wynn MD Meds Allergies and Home Medications Allergies Allergy/AdvReac Type Severity Reaction Status Date / Time No Known Allergies Allergy Verified 05/28/23 09:30 Home Medication Medication Instructions Recorded aspirin 81 mg capsule 81 mg PO DAILY 07/04/21 empagliflozin 10 mg tablet 10 mg PO DAILY #90 tabs 09/18/22 (Jardiance) losartan 50 mg tablet 50 mg PO DAILY #90 tabs 09/18/22 atorvastatin 80 mg tablet 80 mg PO DAILY #90 tabs 11/27/22 metoprolol succinate 25 mg 12.5 mg (1/2 x 25 mg) PO DAILY #90 11/27/22 tablet,extended release 24 hr tabs spironolactone 25 mg tablet 12.5 mg (1/2 x 25 mg) PO DAILY #90 11/27/22 tabs Current Visit Medications: Current Medications Generic Name Dose Route Start Last Admin Trade Name Freq PRN Reason Stop Dose Admin Hyoscyamine Sulfate 0.125 mg 05/27/23 14:59 Hyoscyamine 0.125 Mg Sl/Oral/Chew SL 06/26/23 14:58 DIRECTED PRN Ringer's Solution 1,000 mls @ 80 mls/hr 05/28/23 06:00 IV 05/28/23 23:59 INFUSION SELINA IV Miscellaneous Supplies 1 each 05/28/23 06:00 Iv Access IV 05/28/23 23:59 DIRECTED SELINA Ondansetron HCl 4 mg 05/27/23 14:59 Ondansetron 4 Mg/2 Ml Vial IVP 06/26/23 14:58 Q4H PRN PRN Nausea / Vomiting Sodium Chloride 0 ml 05/28/23 06:00 Normal Saline Flush 10 Ml Syr IV 05/28/23 23:59 PRN PRN Sodium Chloride 0 ml 05/28/23 06:00 Normal Saline 10 Ml Vial IJ 05/28/23 23:59 DIRECTED PRN Sterile Water 0 ml 05/28/23 06:00 Water,Injection,Sterile 10 Ml Vial IJ 05/28/23 23:59 DIRECTED PRN PFSH Active Problems Active Problems: Problem Status Onset Code Screen for colon cancer Z12.11 Episodic lightheadedness R42 LBBB (left bundle branch block) I44.7 Smoker F17.200 Cardiomyopathy I42.9 Hypertension I10 Surgical History Surgical History H/O cardiac catheterization 06/28 [facility] no obstructive dz RH Tobacco Smoking/Tobacco Use Status: Former Tobacco Use Passive smoking exposure: Yes Second hand exposure: Yes Alcohol Alcohol Intake: current Alcohol intake frequency: holidays/special occasions only Alcohol type: beer Substance Use Substance use: Never Substance use type: does not use Vital Signs and Lab Results Vital Signs Most Recent Vital Signs in EMR: Most Recent Vital Signs Temp Pulse Resp BP Pulse Ox 36.6 C 68 16 114/80 99 05/28/23 09:35 05/28/23 09:35 05/28/23 09:35 05/28/23 09:35 05/28/23 09:35 Lab Results Blood Type / Crossmatch: No Data to Display Complete Blood Count: No Data to Display Complete Metabolic Panel: No Data to Display Liver Function Panel: No Data to Display Coagulation Panel: No Data to Display Cardiac Panel: No Data to Display Arterial Blood Gas: No Data to Display Venous Blood Gas: No Data to Display Pancreas Panel: No Data to Display Thyroid Panel: No Data to Display Infectious Disease: No Data to Display Blood Cultures: No Data to Display Toxicology Panel: No Data to Display Imaging and Studies Imaging and Studies Study information below may be from another EMR and interpreted by another provider. Please see original notes in EMR for more complete details. EKG Summary: EKG PATIENT NAME: Isiah Nuñez UNIT #: [id number] ORDERING PROVIDER: Anjali Busby M.D. PRIMARY CARE PROVIDER: MATT KIM NP DATE/TIME OF SERVICE: 08/18/21 1204 : 1965 PERFORMING LOCATION: .CARD APPROVED REPORT Exam: Resting ECG Reason for Exam: CMP Patient Location: O HR:81 bpm ECG Measurements Heart Rate 81 AXIS MD [id number] P [id number] QRSd 155 QRS -43 QT 433 T115 QTc 503 Conclusion Sinus rhythm Left bundle branch block...QRSd>120, broad/notched R Baseline wander in lead(s) V1 <Electronically signed by ANJALI BUSBY MD in OV> E-Sign Date: 08/18/21 E-Sign Time: 1309 Echocardiogram Summary: Isiah Nuñez He/Him/His 57 M 1965 Allergy/Adv: No Known Allergies Patient Name: Isiah Nuñez Unit #: [id number] Loc: DI Ordering Provider: Anjali Busby M.D. Status: REG [facility] Primary Care Provider: Matt Kim NP Date of Exam: 04/13/23 Sex: M Admission Date: 04/13/23 : 1965 Age: 57 APPROVED REPORT EXAM: Comprehensive 2D, Doppler, and color-flow Echocardiogram Patient Location: Out-Patient Platform Builder: Zaria Cox RDCS (AE) Indications: Check LV function, Cardiomyopathy Other Information Study Quality: Good Conclusion Normal left ventricular wall thickness and chamber size. Ejection fraction is 45 to 50%. There is paradoxic septal motion. There is stage I diastolic dysfunction Normal right ventricular size and systolic function Both atria are normal in size. The atrial septum is thin and hypermobile Trileaflet aortic valve with trace regurgitation Mildly dilated ascending aorta 3.5 cm Ejection fraction appears similar to 2021 Wall motion Left Ventricle The left ventricle is normal size. Left ventricular systolic function is mildly decreased. There is normal left ventricular wall thickness. Paradoxical septal motion Transmitral Doppler flow pattern suggests impaired LV relaxation. There is no ventricular septal defect visualized. LVEF is 48%. Right Ventricle The right ventricle is normal size. The right ventricular systolic function is normal. Atria The left atrium size is normal. The right atrium size is normal. Atrial septal aneurysm is present. Aortic Valve The aortic valve is normal in structure. Aortic valve is trileaflet. There is no aortic valvular stenosis. Trace aortic regurgitation. Mitral Valve The mitral valve is normal in structure. No evidence of mitral valve stenosis. Trace mitral regurgitation. Tricuspid Valve The tricuspid valve is normal in structure. There is no tricuspid valve stenosis. Trace tricuspid regurgitation. Unable to assess PA pressure. Pulmonic Valve The pulmonary valve is normal in structure. There is no pulmonic valvular stenosis. There is no pulmonic valvular regurgitation. Great Vessels The aortic root is normal in size. The ascending aorta is mildly dilated. Aortic arch is normal in caliber. IVC is normal in size and collapses >50% with inspiration. Pericardium There is no pericardial effusion. 2D Dimensions IVSD d PLAX 1.02 cm M: 0.6-1.2Ao Root d 3.55 cm M: 3.1 - 3.7 LVPW d PLAX 0.98 cm M: 0.6 - 1.2Ao Asc Diam d 3.50 cm M: 2.6 - 3.4 LVID d PLAX 5.47 cm M: 4.2 - 5.8 LVDs 4.28 cm M: 2.5 - 4.0 LV EF Teichholz 43.8 % FS21.88 % LV EDV (Teich)145.8 mL LV ESV (Teich)82.0 mL M-Mode TAPSE 2.02 cm (M/F) >1.7 Auto EF LV EDV W0T222.8 mLLV EDV M3T579.1 mLLV EDV BP152.1 mL LV ESV A4C75.4 mLLV ESV A2C84.1 mLLV ESV BP80.4 mL LVEF(%) A4C44.0 %LVEF(%) A2C48.4 %LVEF(%) BP47.2 % LV SV A4C59.4 mlLV SV A2C78.9 mlLV SV BP71.8 ml LV CO A4C3.2 L/minLV CO A2C4.6 L/minLV CO BP3.9 L/min HR A4C53.81 BPMHR A2C58.63 BPMLV EDV Index (BP) LV Strain Long Pk Overal Avg (s) 14.44 LA Volume LA Length A4C4.5 cmLA Length A2C5.7 cm LA Area A4C s 16.26 cm2LA Area A2C s 20.21 cm2 LA Vol A4C A-L49.99 mLLA Vol A2C A-L61.12 mLLA Vol Biplane A-L62.1 mL LA Vol/BSA A4C A-LLA Vol/BSA A2C A-LLA Vol/BSA BP A-L 30.8 mL/m2 LA Vol A4C MOD46.1 mLLA Vol A2C MOD58.5 mLLA Vol BP MOD58.3 mL RA Volume RA Area A4C11.5 cm2RA ESV A4C (A-L)30.4mLRA Vol/BSA A4C A-L RA Length A4C3.7 cmRA ESV A4C (MOD)28.7mL LV Diastology MV E' medial0.055 (>0.07 m/s)MV E Vmax 0.53 (0.4-1.3 m/s) MV E/E' MED9.52 (<14)MV A Vmax 0.85 (0.4-1.3 m/s) MV E' lateral0.074 (>0.1 m/s)E/A Ratio 0.6 MV E/E' LAT7.11 (<14) MV E' Average0.065 m/s MV E/E'(average)8.14 Aortic Valve AoV Vmax1.55 m/sLVOT Vmax 1.19 m/s AoV Peak Grad9.6 mmHgLVOT Peak Grad 5.7 mmHg AoV Area (Vmax)2.47 [id number] VTI0.305 m AoV VTI0.343 mLVOT Mean Grad 2.6 mmHg AoV Mean Alfonzo.1.07 m/sLVOT SV 97.73 mL AoV Mean Grad5.3 mmHgLVOT Diam s 2.00 cm AoV Area (VTI)2.85 cm2 Velocity Ratio 0.77 Mitral Valve MV DT 183 (160-240 msec) MV Vmax TIPS 0.99 m/s MV Mean Grad 1.3 (<2mmHg) MV VTI 0.281 m Pulmonary Valve PV Vmax 0.97 (0.5-1.5 m/s)RVOT Vmax 0.62 m/s PV Peak Grad 3.7 mmHgRVOT Peak Gr.1.5 mmHg PV Mean Vel0.61 m/sRVOT VTI0.148 m PV Mean Grad 1.8 mmHgRVOT Mean Gr.0.6 mmHg Tricuspid Valve RA Pressure 3.00 mmHg TV S'0.11 m/s Ordered By: Anjali Busby M.D. CC: Dictated By: Anjali Busby M.D. 04/13/23844 <Electronically signed by Anjali Busby M.D. in [place]> 04/13/23851 Transcribed By: Anjali Busby MD 04/13/23844 This is privileged, confidential information intended only for the provider named. Any use or distribution by any person other than this provider is strictly prohibited. If you receive this report in error, please notify us immediately at [phone] and return the original report to us at the address above. Thank-you. Other Study Summary:: cardiac cath results reviewed; see cardiology note Anesthesia Assessment and Plan Anesthesia History Personal History: No History of Anesthesia Complications Family History: No Family History of Anesthesia Complications Exercise Tolerance Exercise Tolerance: Metabolic Equivalents>4 Pertinent Negatives Pertinent Negatives: No Symptoms of GERD, No Major Cardiovascular Symptoms or Complaints, No Major Pulmonary Symptoms or Complaints and No History of CVA/TIA Cardiac & Pulmonary Exam Cardiac Exam: Normal S1/S2 Heart Sounds Pulmonary Exam: Clear Bilateral Breath Sounds Implantable Cardiac Device Does patient have a Pacemaker or an ICD?: No Airway Exam Known Difficult Airway: No Mallampati Class: 3 Mouth Opening: Normal (> 3cm) Thyromental Distance: Greater than 3 cm Neck Range of Motion: Full ROM Neck Circumference: Normal Teeth Condition: Normal Dentition ASA Classification ASA Score: ASA 2 Emergency Case?: No NPO Status NPO Status: NPO Clears >2 hours, Solids >8 hours Anesthesia Plan Resuscitation Status: Full Code Anesthesia Technique: General Anesthesia Airway Planned: Natural Airway Monitors Used: Standard Monitors
[2023-05-28] MEDS: Lactated Ringers 1,000 ML 80 ML IV (10:00)
[2023-05-28 11:24] VITALS: BMI 24.5
--- NOTE | 2023-05-28 11:30 | BOWEL_PTH ---
PATIENT: Isiah Nuñez LOC: [facility] U#:[id number] AGE/SX: 57/M ROOM: RE05/28/[address]: Isiah Wynn MD : [id number] BED: DIS: 05/28/2023 SPEC #: [id number] RECD: 05/28/23 12:38 STATUS: [place] REQ #: [id number] DELLA: 05/28/23 11:[address]: Isiah Wynn DEPT: Surgical Specimen RECD BY: Danae Lorenzo ENTERED: 05/28/23 12:39 SP TYPE: Bowel OTHR DR: Matt Kirby, BUSINESS OFFICE ASSISTANT Tissues: 1 - BIOPSY BOWEL Procedures: GROSS AND MICRO LEVEL 4 Comments: [id number]
[2023-05-28 11:42] VITALS: BP 104/92; PULSE 70; RESP 16; TEMP 36.6; O2SAT 98
[2023-05-28 11:55] VITALS: BP 123/93; PULSE 56; RESP 16; TEMP 36.6; O2SAT 99
--- NOTE | 2023-05-28 12:01 | W.ANESPOSTOP ---
Postoperative Evaluation Date, Time and Location Date Performed: 05/28/23 Time Performed: 11:55 Patient Location: Day Surgery Unit Vital Signs Most Recent Imported Vital Signs: Most Recent Vital Signs Temp Pulse Resp BP Pulse Ox 36.6 C 56 L 16 123/93 H 99 05/28/23 11:55 05/28/23 11:55 05/28/23 11:55 05/28/23 11:55 05/28/23 11:55 Pain Score Most Recent Pain Score: Most Recent Pain Score Pain Level 0 05/28/23 11:55 Assessment Mental Status: Awake (Alert & Oriented to Patient Baseline) Airway and Respiratory Function: Patent airway with normal (patient baseline) respiratory exam Cardiovascular Function: Hemodynamically Stable Hydration Status: Adequately Hydrated Nausea & Vomiting: No Nausea or Vomiting Pain: Pt. Denies Any Pain Peripheral Nerve Block: Patient did not receive a nerve block
== END 2023-05-28 12:14 | disposition home or self-care (01) ==
LOC: SUR 09:07
PROVIDERS: PCP Nurse Practitioner Family; Visit Provider Surgery
PROC: 0DJD8ZZ Inspection of Lower Intestinal Tract, Via Natural or Artificial Opening Endoscopic (ICD-10-PCS; CPT 45378; principal; 2023-05-28 11:15)
DX: Z12.11 Encounter for screening for malignant neoplasm of colon (principal); K63.5 Polyp of colon; K64.0 First degree hemorrhoids; I10 Essential (primary) hypertension; I42.9 Cardiomyopathy, unspecified; F17.200 Nicotine dependence, unspecified, uncomplicated; K63.89 Other specified diseases of intestine
CPT/HCPCS: 45380; 88305; J2704

== ENCOUNTER 2024-06-26 09:52 | Outpatient (CLI) | payer SELFPAY ==
--- NOTE | 2024-06-26 09:45 | RT.EKG_ITS ---
APPROVED REPORT Exam: Resting ECG Reason for Exam: baseline Patient Location: O HR:70 bpm ECG Measurements Heart Rate 70 AXIS CO 171 P 43 QRSd 154 QRS -43 QT 438 T 106 QTc 473 Conclusion Sinus rhythm...normal P axis, V-rate 50- 99 Left bundle branch block...QRSd>120, broad/notched R
== END 2024-06-26 09:53 | disposition home or self-care (01) ==
LOC: DI.CARD 09:53
PROVIDERS: PCP Nurse Practitioner Family; Visit Provider Internal Medicine Cardiovascular Disease
DX: I42.9 Cardiomyopathy, unspecified (principal)
CPT/HCPCS: 93010

== ENCOUNTER 2024-10-12 06:31 | Emergency (ER) | payer SELFPAY ==
[2024-10-12 06:35] VITALS: BP 143/114; PULSE 80; RESP 18; TEMP 36.7; O2SAT 98
--- NOTE | 2024-10-12 06:45 | NUR.NOTE ---
report given to justin KOHLI Nursing Note:
--- NOTE | 2024-10-12 06:58 | ED.GENADUL_ITS ---
Discharge Plan Disposition Patient Disposition: Home Condition: Stable Discharge Details Clinical Impression: Degeneration of intervertebral disc at L5-S1 level Primary Care Provider: Matt Kirby ED Provider: Blayne Carpio [place] Meds and New Rx's Prescriptions: New cyclobenzaprine 10 mg tablet 10 mg PO TID PRNQty: 20 0RF prednisone 20 mg tablet 60 mg PO DAILY 4 Days Qty: 12 0RF Continued aspirin 81 mg capsule 81 mg PO DAILY atorvastatin 80 mg tablet 80 mg PO DAILY Qty: 90 3RF losartan 50 mg tablet 50 mg PO DAILY Qty: 90 3RF spironolactone 25 mg tablet 25 mg PO DAILY metoprolol succinate 25 mg tablet extended release 24 hr 25 mg PO DAILY Discharge Instructions Additional Instructions: Your x-ray showed you have degenerative disc disease. This usually heals with time. He can take 1000 mg of acetaminophen and 600 mg of ibuprofen every 6 hours as needed. Try to move around is much as possible but avoid heavy lifting. Physical therapy usually helps as well so he can call make an appointment. Follow-up with your primary care provider especially if not improving. If you feel more ill or have new symptoms such as high fevers or difficulty urinating return to the emergency department for reevaluation. Stand Alone Forms: Physical Therapy Referral HPI General Mode of arrival: ambulatory . Date/Time Provider Initiated Documentation: 10/12/24 06:47 . Limitations to Documentation: no limitations . Information obtained by: patient . History of Present Illness 59 year old M pr esents to the emergency department with the chief complaint of left lower back pain, described as moderate, Quality is described as aching, and is localized to the left and lower extremity. Patient started experiencing this day(s) (6) and it has been constant. No relieving factors improve symptom(s), No exacerbating factors reported . Patient notes no other symptoms.. Patient did receive the following treatments prior to arrival, none Related Data Home Medications ?Medication ?Instructions ?Recorded ?Confirmed aspirin 81 mg capsule 81 mg PO DAILY 07/04/21 10/12/24 atorvastatin 80 mg tablet 80 mg PO DAILY #90 tabs 01/17/24 10/12/24 losartan 50 mg tablet 50 mg PO DAILY #90 tabs 10/02/24 10/12/24 cyclobenzaprine 10 mg tablet 10 mg PO TID PRN #20 tabs 10/12/24 metoprolol succinate 25 mg 25 mg PO DAILY 10/12/24 10/12/24 tablet,extended release 24 hr prednisone 20 mg tablet 60 mg (3 x 20 mg) PO DAILY 4 days 10/12/24 #12 tabs spironolactone 25 mg tablet 25 mg PO DAILY 10/12/24 10/12/24 Previous Rx's ?Medication ?Instructions ?Recorded atorvastatin 80 mg tablet 80 mg PO DAILY #90 tabs 01/17/24 losartan 50 mg tablet 50 mg PO DAILY #90 tabs 10/02/24 cyclobenzaprine 10 mg tablet 10 mg PO TID PRN #20 tabs 10/12/24 prednisone 20 mg tablet 60 mg (3 x 20 mg) PO DAILY 4 days 10/12/24 #12 tabs Allergies Allergy/AdvReac Type Severity Reaction Status Date / Time No Known Allergies Allergy Verified 10/12/24 06:39 General Stated Complaint: Orthopedic DORA: 4 Review of Systems All systems reviewed & are unremarkable except as noted in HPI and below Constitutional Constitutional: Denies chills, Denies fever(s) and Denies weakness Cardiovascular Cardiovascular: Denies chest pain and Denies dyspnea Respiratory Respiratory: Denies cough and Denies dyspnea Gastrointestinal Gastrointestinal: Denies abdominal pain and Denies vomiting Musculoskeletal Musculoskeletal: Reports back pain Neurologic Neurologic: Denies weakness Exam Const General: no acute distress Orientation: alert [facility] Head: normal to inspection Ears: external ears normal General nose exam: external nose normal Mouth: moist mucous membranes Eyes General: appearance normal, both eyes and all related structures Neck Neck: normal visual inspection Resp Effort & Inspection: normal respiratory effort and able to speak in complete sentences Cardio Rate: regular rate Back/Spine/Pelvis Back: no CVA tenderness Thoracic/Lumbar Spine: lumbar spinal tenderness Skin General skin exam: no rashes or lesions noted Neuro General: patient alert and patient oriented x3 Extrem General: normal to inspection Psych Mental Status: mental status grossly normal Course Vital Signs Vital signs: Vital Signs Temperature 36.7 C 10/12/24 06:35 Pulse 80 10/12/24 06:35 Respiratory Rate 18 10/12/24 06:35 Blood Pressure 143/114 H 10/12/24 06:35 Pulse Oximetry 98 10/12/24 06:35 Temperature 36.7 C 10/12/24 06:35 Pulse 80 10/12/24 06:35 Respiratory Rate 18 10/12/24 06:35 Blood Pressure 143/114 H 10/12/24 06:35 Pulse Oximetry 98 10/12/24 06:35 Pain Level 7 10/12/24 06:35 Medical Decision Making 59-year-old male with a history of hypertension, nonischemic cardiomyopathy who comes in with 6 days of left lower back pain that radiates down his left leg. He denies any falls or trauma but states it started after he was trying to remove a object in the back of a pickup truck and leaned back too far. He denies any fevers, chills, changes in urinary or bowel function. No IV drug use. He localizes the pain to the left lower back. He states the pain radiates down the posterior thigh and then wraps around to the anterior leg of the lower extremity. He has no leg swelling, there is no rashes or skin discoloration. He has no saddle anesthesia. He has reproducible tenderness over the left lower lumbar region. There is no palpable visible deformities. He has intact distal sensation and pulses. Symptoms seem consistent with sciatica versus disc herniation. He has no findings on exam or history to suggest entities such as cauda equina or spinal epidural abscess. I will obtain a x-ray of the lumbar spine though his history and exam are consistent with etiology such as fracture or osteomyelitis. Will treat his symptoms with Toradol and prednisone and reassess. Patient stable, x-ray shows L5-S1 spondylosis and degenerative disc disease. I will provide a short course of prednisone and also muscle relaxers to use as needed. I will also give him a physical therapy referral. He will follow-up with his PCP if not proving and return precautions given Differential Diagnosis Differential Diagnosis: Disc herniation, sciatica Medical Records Medical records reviewed: Yes I reviewed the patient's medical records. Quality:SDOH Health Related Social Needs: Health related social needs details none PFSH All Active Problems (Updated 10/12/24 @ 08:10 by Blayne Carpio MD) Degeneration of intervertebral disc at L5-S1 level (Acute) Episodic lightheadedness (Acute) LBBB (left bundle branch block) (Acute) Smoker (Acute) Quit on Jun 27, 2021 Cardiomyopathy (Acute) Hypertension (Chronic) Surgical History History of colonoscopy (~05/2023) path sent H/O cardiac catheterization 06/28 [facility] [place] no obstructive dz RH Family History Mother , 74 Heart disease Brother , 58 Cancer Social History Smoking/Tobacco Use Status: Former Tobacco Use tobacco type: cigarettes Quit Date: 06/27/21 Second Hand Exposure: Yes Smoking risk assessment performed?: Yes Alcohol Intake: current Alcohol Intake frequency: holidays/special occasions only Alcohol type: beer Drug use: Never Substance use type: does not use Household members: spouse Housing: house Communication Needs: None Do you need help understanding health information?: Never current occupation: human resources Pets and animals: Yes Pets and animals: cat(s) and dog(s) Sexually active: Yes Do you think of yourself as: straight/heterosexual Current gender identity: male What is your relationship status?: How often do you talk on the phone with friends or family?: three or more times per week How often do you get together with friends or relatives?: once per week How often do you attend mormonism or anabaptism services?: decline to answer Do you belong to any clubs or organized social groups?: no Panel score (0-1 are the most socially isolated patients): 2 What type of physical activity do you participate in: none and weight lifting Frequency: does not exercise Precious/Congregation: No preference Special precious needs: No Seatbelt use: always Helmet use: Yes Helmet use: always Drive intox 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
--- NOTE | 2024-10-12 07:00 | DI.RAD_ITS ---
Exam(s) XR LUMBAR SPINE COMPLETE EXAM: XR LUMBAR SPINE COMPLETE CLINICAL HISTORY: lower back pain. TECHNIQUE: 2D digital imaging was performed of the lumbar spine. Five images were obtained. AP, la teral, right oblique, left oblique and L5-S1 spot views were obtained. COMPARISON: No exams were available for comparison FINDINGS: BONES: No fracture or destructive lesion. There endplate osteophytes seen at L4-5 and L5-S1. No facet hypertrophy identified. DISKS: There is disc space narrowing at L5-S1. ALIGNMENT: Lumbar spinal alignment is within normal limits. No spondylolysis or spondylolisthesis. SOFT TISSUE: Atherosclerotic calcification is present. IMPRESSION: 1. No acute fracture or subluxation in the lumbar spine. 2. Degenerative changes in the lumbar spine particularly at L5-S1. 3. The preliminary [facility] report was reviewed. DATA REPOSITORY: RADIATION DOSE DELIVERED:
[2024-10-12] MEDS: predniSONE 20 MG TAB 60 MG PO (07:11)
[2024-10-12] MEDS: Ketorolac 15 MG/ML VIAL IM (07:12)
[2024-10-12 08:03] VITALS: BP 132/91; PULSE 68; RESP 18; O2SAT 96
--- NOTE | 2024-10-12 08:03 | DI.[facility]_ITS ---
PROCEDURE INFORMATION: Exam: XR Lumbosacral Spine Exam date and time: 10/12/2024 7:24 AM Age: 59 years old Clinical indication: Other: Lower back pain TECHNIQUE: Imaging protocol: Radiologic exam of the lumbosacral spine. Views: 4 or 5 views. COMPARISON: No relevant prior studies available. FINDINGS: Bones/joints: No fractures or suspicious osseous lesions are identified. Lumbar lordosis is maintained. There is grade 1 anterolisthesis of L5 on S1, with endplate sclerosis, vacuum disc phenomenon and severe loss of intervertebral disc height at this level. Soft tissues: No acute abnormality. Scattered atherosclerotic calcifications in the aortoiliac system. IMPRESSION: L5-S1 spondylosis and degenerative disc disease. Dictated and Authenticated by: Vicki El MD. Orderin Shirin Cisneros MD
== END 2024-10-12 08:20 | disposition home or self-care (01) ==
PROVIDERS: Emergency Provider Emergency Medicine; PCP Nurse Practitioner Family
DX: M51.379 Other intervertebral disc degeneration, lumbosacral region without mention of lumbar back pain or lower extremity pain (principal); I10 Essential (primary) hypertension; I42.8 Other cardiomyopathies; Z79.82 Long term (current) use of aspirin; Z87.891 Personal history of nicotine dependence
CPT/HCPCS: 99283; 72110; J1885; J7512

== ENCOUNTER 2024-12-08 10:24 | Outpatient (CLI) | payer SELFPAY ==
[2024-12-08 09:18] LABS: Anion Gap 7.7 mmol/L (3-11); BUN 7 mg/dL (7-18); CO2 26.3 mmol/L (21.0-32.0); Calcium 9.0 mg/dL (8.5-10.1); Calculated LDL 48 mg/dL (<100); Chloride 106 mmol/L (98-107); Cholesterol 106 mg/dL (<200); Estimated GFR 102.58 (mL/min/1.73m2); Glucose 104 mg/dL (74-106); HDL Cholesterol 52 mg/dL (>or=40); Potassium 4.0 mmol/L (3.5-5.1); Sodium 140 mmol/L (136-145); Triglyceride 31 mg/dL (<150)
[2024-12-08 09:28] LABS: Hemoglobin A1C 5.4 % (<5.7)
== END 2024-12-08 10:25 | disposition home or self-care (01) ==
LOC: LBO 10:25
PROVIDERS: PCP Nurse Practitioner Family; Visit Provider Nurse Practitioner Family
DX: Z13.220 Encounter for screening for lipoid disorders (principal); Z13.1 Encounter for screening for diabetes mellitus; I10 Essential (primary) hypertension
CPT/HCPCS: 36415; 80048; 80061; 83036